=== PATIENT | female | born 1935 | race Hispanic/Latino ===

== ENCOUNTER 2021-07-14 17:41 | Emergency (ER) | payer OTHER ==
[2021-07-14] MEDS ORDERED: SODIUM CHLORIDE 0.9% 1000 ML 1,000 ML IV ONE (18:02)
[2021-07-14] MEDS ORDERED: ONDANSETRON 4 MG/2 ML INJ IV ONE (18:02)
[2021-07-14] MEDS ORDERED: MECLIZINE 25 MG TAB PO ONE (18:02)
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
[2021-07-14 19:59] LABS: Alanine Aminotransferase 9 units/L (7-56); Albumin 3.9 g/dL (3.9-5); Blood Urea Nitrogen 9 mg/dL (7-17); Calcium 9.2 mg/dL (8.4-10.2); Hemolysis Index 9
[2021-07-14 20:03] LABS: BUN/Creatinine Ratio 15
[2021-07-14 22:09] VITALS: BP 153/73
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
== END 2021-07-14 23:08 | disposition home or self-care (01) ==
LOC: ED 17:41
DX: S40.021A Contusion of right upper arm, initial encounter (principal); S40.022A Contusion of left upper arm, initial encounter; R53.1 Weakness; R53.83 Other fatigue; Y08.89XA Assault by other specified means, initial encounter; Y93.89 Activity, other specified; Y92.89 Other specified places as the place of occurrence of the external cause; Y99.8 Other external cause status
CPT/HCPCS: 36415; 70450; 70496; 70498; 72125; 80048; 80053; 82550; 96361; 96374; 99284; J2405; J7030; Q9967; 80320; G0480